=== PATIENT | male | born 1965 | race Caucasian/White ===

== ENCOUNTER 2024-04-09 14:13 | Emergency (ER) | payer OTHER, SELFPAY ==
--- NOTE | ~2024-04-09 | XR_ITS ---
EXAMINATION: XR chest 2V DATE: 04/09/2024 15:02 INDICATION: Chest pain. TECHNIQUE: Frontal and lateral views of the chest were obtained. COMPARISON: Chest 2 views 07/01/2014 FINDINGS: There is no pneumonia, pleural effusion, or pneumothorax. The heart size is normal. There i s mild chronic anterior wedging of multiple vertebral bodies. IMPRESSION: 1. No acute cardiopulmonary disease. Reviewed, dictated and finalized at location A.
--- NOTE | ~2024-04-09 | CT_ITS ---
CT brain wo con Ordering provider: Ladarius Guerra MD History: 59 years Male with . dizzy . Comparison: None. Technique: CT of the head without contrast. Radiation reduction technique utilized. The dose-length product was 681 mGy-cm.. FINDINGS: BRAIN PARENCHYMA AND CSF SPACES: No midline shift, mass effect or hemorrhage. The brain parenchyma a nd CSF spaces are otherwise normal. VISUALIZED PARANASAL SINUSES: Well aerated. MASTOIDS: Well aerated. BONES: The bones appear intact. SOFT TISSUES: Visualized nasopharynx is normal. Superficial soft tissues are normal. IMPRESSION: No acute intracranial findings. Reviewed, dictated and finalized at location A.
--- NOTE | 2024-04-09 14:20 | ECG_ITS ---
Test Date: 2024-04-09 14:24:51 Measurements Intervals [place] Rate: 69 P: 32 UT: 189 QRS: 2 QRSD: 143 T: 34 QT: 382 QTc: 409 Interpretive Statements SINUS RHYTHM RIGHT BUNDLE BRANCH BLOCK BASELINE ARTIFACT- I, II, AVR, AVL, AVF, V1-V6 ABNORMAL ECG No previous ECG available for comparison Electronically Signed On 04-09-2024 14:35:32 CDT by Faisal Robert D.O.
[2024-04-09 14:29] VITALS: BP 134/88; PULSE 74; RESP 16; TEMP 36.3; O2SAT 98
[2024-04-09 14:39] LABS: Basophils Absolute Auto 0.1 K/mm3 (0.0-0.1); Basophils Percent Auto 0.9 % (0.2-1.2); Eosinophils Absolute Auto 0.2 K/mm3 (0-0.3); Eosinophils Percent Auto 2.8 % (0-4.4); Hematocrit 42.2 % (42.0-52.0); Hemoglobin 14.8 g/dL (14.0-18.0); Immature Granulocyte Absolute 0.02 K/mm3 (0.00-0.031); Immature Granulocyte Percent A 0.3 % (0-0.5); Lymphocytes Absolute Auto 1.57 K/mm3 (0.9-3.2); Lymphocytes Percent Auto 23.4 % (18.3-44.2); Mean Corpuscular HGB Conc 35.1 g/dl (32-36); Mean Corpuscular Hemoglobin 33.6 pg (26-34); Mean Corpuscular Volume 95.9 fl (80-100); Mean Platelet Volume 9.4 fl (7.4-10.4); Monocytes Absolute Auto 0.7 K/mm3 (0.1-0.6); Monocytes Percent Auto 9.7 % (2.6-8.5); Neutrophils Absolute Auto 4.2 K/mm3 (1.3-6.7); Neutrophils Percent Auto 62.9 % (45.5-73.1); Platelet Count Result 204 k/mm3 (150-375); Red Cell Distribution Width 12.4 % (11.5-14.5); White Blood Count 6.7 K/mm3 (4.5-10.0)
[2024-04-09 14:48] LABS: INR 0.9; Prothrombin Time 13.1 Seconds (11.1-14.7)
[2024-04-09 14:49] LABS: Partial Thromboplastin Time 27.9 Seconds (22.3-36.8)
[2024-04-09 14:53] LABS: Alanine Aminotransferase 30 U/L (6-50); Albumin Level 4.3 g/dL (3.5-5.1); Alkaline Phosphatase 74 U/L (38-126); Anion Gap 9 mmol/L (4-12); Aspartate Amino Transferase 28 U/L (17-59); Bilirubin,Total 0.4 mg/dL (0.2-1.3); Blood Urea Nitrogen 21 mg/dL (9-20); Calcium 9.1 mg/dL (8.4-10.2); Carbon Dioxide 27 mmol/L (22-30); Chloride 103 mmol/L (98-107); Estimated CRCL calculation 53 ml/min; Estimated Glomerular Filt Rate 57; Glucose 97 mg/dL (65-110); Lipase 90 U/L (23-300); Potassium 3.9 mmol/L (3.4-5.0); Sodium 139 mmol/L (137-145)
[2024-04-09 15:04] LABS: Troponin I < 0.012 ng/mL (0.000-0.034)
[2024-04-09 16:06] VITALS: BP 138/91; PULSE 63; RESP 14; TEMP 36.9; O2SAT 100
[2024-04-09] MEDS: ASPIRIN 81 MG CHEWABLE TABLET 324 MG PO (16:12)
[2024-04-09 16:16] VITALS: O2SAT 100
[2024-04-09] MEDS: MECLIZINE HCL 25 MG TABLET PO (16:33)
[2024-04-09] MEDS: LACTATED RINGERS 1,000 ML 999 ML IV CONT (16:43)
[2024-04-09 17:35] VITALS: BP 156/83; PULSE 60; RESP 25; O2SAT 100
--- NOTE | 2024-04-09 17:37 | ECG_ITS ---
Test Date: 2024-04-09 15:47:25 Measurements Intervals [place] Rate: 63 P: 28 SC: 195 QRS: 14 QRSD: 142 T: 35 QT: 398 QTc: 408 Interpretive Statements SINUS RHYTHM RIGHT BUNDLE BRANCH BLOCK BASELINE ARTIFACT- I, II, AVR ABNORMAL ECG Compared to ECG 04/09/2024 14:24:51 No significant changes Electronically Signed On 04-10-2024 06:26:07 CDT by Faisal Robert D.O.
[2024-04-09 17:39] LABS: Troponin I < 0.012 ng/mL (0.000-0.034)
--- NOTE | 2024-04-09 19:22 | ED.CHESTPAIN ---
HPI - Chest Pain General Chief Complaint: Chest Pain Stated Complaint: Chest pain x 3 weeks Time Seen by Provider: 04/09/24 15:47 History of Present Illness HPI narrative: 59-year-old male with a past medical history significant for hypertension presenting to the emergency depart with complaint of left-sided chest discomfort for the last 3 weeks intermittent in nature. Patient takes lisinopril and atorvastatin. Denies any pain in his neck, back, arms, abdomen. Was otherwise in his normal state of health. States his pain is 3/10 intermittently at times not associated with any food or exertion. No associated shortness of breath. He states he was supposed to have an outpatient stress test in 2 weeks time and is still keeping that appointment but otherwise has had no recent hospital visits or illnesses. Patient states that he occasionally gets ?dizzy where he feels disoriented times but no syncope or presyncope events. No head trauma or recent injuries. No history of strokes, blood clots. No history of ACS or stents, mi in the past. Related Data Allergies Allergy/AdvReac Type Severity Reaction Status Date / Time No Known Drug Allergies Allergy Mild Unknown Verified 04/09/24 14:38 Review of Systems Review of Systems: As reviewed above in HPI Exam Narrative: GENERAL: [Well-appearing, well-nourished, and in no acute distress.] HEAD: [Normocephalic, atraumatic.] EYES: [PERRLA and EOMI.] ENT: Nares clear, no rhinorrhea or epistaxis. Mucous membranes moist. NECK: Supple. CHEST: [Clear to auscultation. No respiratory distress.] HEART: [Regular rate and rhythm]. No murmur heard. [Normal peripheral pulses.] ABDOMEN: [Soft, nondistended], [nontender], [No rigidity or guarding] EXTREMITIES: Normal range of motion. [No edema.] SKIN: Warm, dry, no rash. NEURO: [No focal deficits]. Alert and oriented [x3.] PSYCH: [Normal mood and affect.] Course Vital Signs Vital signs: Vital Signs Temperature 36.3 C L 04/09/24 14:29 Pulse Rate 74 04/09/24 14:29 Respiratory Rate 16 04/09/24 14:29 Blood Pressure 134/88 04/09/24 14:29 Pulse Oximetry 98 09/24/24 14:29 Oxygen Delivery Room Air 04/09/24 14:29 Temperature 36.9 C 04/09/24 16:06 Pulse Rate 60 04/09/24 17:35 Respiratory Rate 25 H 04/09/24 17:35 Blood Pressure 156/83 H 04/09/24 17:35 Pulse Oximetry 100 04/09/24 17:35 Oxygen Delivery Room Air 04/09/24 16:16 MDM - Chest Pain MDM Narrative Medical decision making narrative: 59-year-old male with history of hypertension presenting for vague chest discomfort for last 3 weeks, intermittent in nature, associated with occasional ?dizzy ?episodes without loss consciousness or syncope, presyncope. Normal cardiovascular assessment with warm well perfused extremities, regular rate and rhythm, no abdominal pain, no present chest discomfort or shortness of breath. Normal neurological assessment. Has an outpatient stress test in 3 weeks time. Differential diagnosis at this time includes ACS, musculoskeletal chest pain, vertigo, less likely central pathology such as stroke and very unlikely to be aortic syndrome. Workup was initiated including CT head, serial troponins, EKG and chest x-ray. He was provided meclizine and a L of fluid. Workup revealed no leukocytosis or anemia. Coagulation studies within normal limits. Electrolyte panel within normal limits, normal renal function panel, normal hepatic function panel, normal glucose. Negative troponin x2. Negative lipase. Head CT independently reviewed and interpreted by radiology with no acute intracranial findings. Chest x-ray showed no acute cardiopulmonary process. EKG was interpreted by myself with a pseudo right bundle-branch block, no ST segment elevations, depressions or any interval anomalies. Normal QTC intervals. Patient was re-evaluated had no symptoms while here in the emergency department. Given his negative cardiac workup x2 and
[2024-04-09 19:49] VITALS: BP 127/86; PULSE 71; RESP 12; TEMP 36.8; O2SAT 100
== END 2024-04-09 20:00 | disposition home or self-care (01) ==
PROVIDERS: Emergency Medicine; Emergency Provider Student in an Organized Health Care Education/Training Program
DX: R07.89 Other chest pain (principal)
CPT/HCPCS: 36415; 70450; 71046; 80053; 83690; 84484; 85025; 85610; 85730; 93005; 96360; 99284; A9270; J7120